=== PATIENT | male | born 1975 | race Caucasian/White ===

== ENCOUNTER 2017-09-18 15:58 | Emergency (ER) | payer OTHER ==
[2017-09-18 16:06] VITALS: RESP 16
[2017-09-18] MEDS ORDERED: ONDANSETRON 4 MG/2 ML VIAL ONE (16:19)
--- NOTE | 2017-09-18 16:26 | EDPHY ---
H & P Time Seen by Provider: 09/18/17 16:19 HPI/ROS: CHIEF COMPLAINT: Nausea, vomiting, diarrhea HISTORY OF PRESENT ILLNESS: This patient is a 42 y/o male complaining of nausea, vomiting and diarrhea. He recently travelled to [place] and his symptoms began on the last day of his trip there, 09/11/17. He initially had diarrhea only, which has resolved and returned several times since onset. In the last two days, he has had diarrhea and nausea. Today, he began vomiting and has vomited four times. He had not been able to keep down food or fluids. He continues to have watery diarrhea. He denies abdominal pain, but endorses some minor intermittent flank pain. He began taking Cipro last night. He has tried Loperamide, Pepto-Bismol, and Zofran ODT without relief of symptoms. He did have 2L IVF prior to arrival. His friend at bedside who travelled with him to [place] is feeling well and has had no similar symptoms. He denies fever, chest pain, shortness of breath, blood in his emesis or stool, urinary complaints, or other associated symptoms. REVIEW OF SYSTEMS: A 10 point review of systems was performed and is negative with the exception of the elements mentioned in the history of present illness. Past Medical/Surgical History: Denies. Social History: Nonsmoker. Friend at bedside. Lives in [place]. Smoking Status: Never smoked Physical Exam: General Appearance: Alert, pleasant, nontoxic-appearing Eyes: Pupils equal and round, no conjunctival pallor or injection ENT, Mouth: Mucous membranes dry Neck: Normal inspection Respiratory: Lungs are clear to auscultation Cardiovascular: Regular rate and rhythm Gastrointestinal: Epigastric tenderness. Abdomen is soft. Neurological: A&O, nonfocal exam Skin: Warm and dry, no rash Extremities: Normal inspection Psychiatric: Mood and affect normal Constitutional: Initial Vital Signs Temperature (C) 36.6 C 09/18/17 16:01 Heart Rate 66 09/18/17 16:01 Respiratory Rate 16 09/18/17 16:01 Blood Pressure 156/79 H 09/18/17 16:01 O2 Sat (%) 93 09/18/17 16:01 O2 Delivery Mode Room Air Allergies/Adverse Reactions: No Known Allergies Allergy (Unverified 09/18/17 16:06) Home Medications: Medication Instructions Recorded Ondansetron Odt [Zofran Odt 4 mg 4 mg PO Q4 PRN #10 tab 09/18/17 (*)] Medical Decision Making ED Course/Re-evaluation: 42 y/o male presents with one week history of diarrhea with nausea and vomiting onset today. Mild epigastric tenderness on exam. Plan for labs including CBC, chemistries, liver, lipase, and GI pathogen test if the patient can provide a stool sample. Plan to administer 4mg IV Zofran and 2L IVF for symptom relief. 17:30 Reassessed. Discussed lab results. Pt's nausea is resolved. Plan for PO trial. Tolerated oral fluids well. Stool sample sent, results pending on discharge. 2100: I called this patient after he left the emergency department. GI pathogen PCR is positive for rotavirus. Advised him to stop taking Cipro. Differential Diagnosis: Differential diagnosis includes though it is not limited to severe dehydration, appendicitis, diverticulitis, bowel perforation, small bowel obstruction. - Data Points Laboratory Results: Laboratory Results 09/18/17 16:30 09/18/17 16:30 09/18/17 09/18/17 16:30 16:30 WBC 5.76 10^3/uL 10^3/uL (3.80-9.50) RBC 5.28 10^6/uL 10^6/uL (4.40-6.38) Hgb 15.4 g/dL g/dL (13.7-17.5) Hct 45.2 % % (40.0-51.0) MCV 85.6 fL fL (81.5-99.8) MCH 29.2 pg pg (27.9-34.1) MCHC 34.1 g/dL g/dL (32.4-36.7) RDW 12.2 % % (11.5-15.2) Plt Count 227 10^3/uL 10^3/uL (150-400) MPV 10.3 fL fL (8.7-11.7) Neut % (Auto) 79.4 % H % (39.3-74.2) Lymph % (Auto) 12.3 % L % (15.0-45.0) Ness % (Auto) 7.1 % % (4.5-13.0) Eos % (Auto) 0.7 % % (0.6-7.6) Baso % (Auto) 0.2 % L % (0.3-1.7) Nucleat RBC Rel Count 0.0 % % (0.0-0.2) Absolute Neuts (auto) 4.57 10^3/uL 10^3/uL (1.70-6.50) Absolute Lymphs (auto) 0.71 10^3/uL L 10^3/uL (1.00-3.00) Absolute Monos (auto) 0.41 10^3/uL 10^3/uL (0.30-0.80) Absolute Eos (auto) 0.04 10^3/uL 10^3/uL (0.03-0.40) Absolute Basos (auto) 0.01 10^3/uL L 10^3/uL (0.02-0.10) Absolute Nucleated RBC 0.00 10^3/uL 10^3/uL (0-0.01) Immature Gran % 0.3 % % (0.0-1.1) Immature Gran # 0.02 10^3/uL 10^3/uL (0.00-0.10) Sodium 143 mEq/L mEq/L (135-145) Potassium 3.8 mEq/L mEq/L (3.5-5.2) Chloride 107 mEq/L mEq/L (97-110) Carbon Dioxide 19 mEq/l L mEq/l (22-31) Anion Gap 17 mEq/L H mEq/L (8-16) BUN 13 mg/dL mg/dL (7-23) Creatinine 1.2 mg/dL mg/dL (0.7-1.3) Estimated GFR > 60 Glucose 107 mg/dL H mg/dL (70-100) Calcium 9.3 mg/dL mg/dL (8.5-10.4) Total Bilirubin 0.5 mg/dL mg/dL (0.1-1.4) Conjugated Bilirubin 0.2 mg/dL mg/dL (0.0-0.5) Unconjugated Bilirubin 0.3 mg/dL mg/dL (0.0-1.1) AST 26 IU/L IU/L (17-59) ALT 35 IU/L IU/L (21-72) Alkaline Phosphatase 66 IU/L IU/L (38-126) Total Protein 7.8 g/dL g/dL (6.3-8.2) Albumin 4.9 g/dL g/dL (3.5-5.0) Lipase 289 IU/L IU/L (23-300) Microbiology Results: MICROBIOLOGY 09/18/17 17:30 Stool Gastrointestinal Tract Panel (PCR) - Final Rotavirus A Medications Given: Discontinued Medications Sodium Chloride (Ns) 1,000 mls @ 0 mls/hr IV ONCE ONE PRN Reason: Wide Open Stop: 09/18/17 16:29 Last Admin: 09/18/17 16:29 Dose: 1,000 mls Sodium Chloride (Ns) 1,000 mls @ 0 mls/hr IV ONCE ONE; Wide Open PRN Reason: Protocol Stop: 09/18/17 16:40 Last Admin: 09/18/17 17:01 Dose: 1,000 mls Ketorolac Tromethamine (Toradol) 15 mg IVP EDNOW ONE Stop: 09/18/17 17:45 Last Admin: 09/18/17 17:46 Dose: 15 mg Ondansetron HCl (Zofran) 4 mg IVP EDNOW ONE Stop: 09/18/17 16:29 Last Admin: 09/18/17 16:30 Dose: 4 mg Departure - Departure Disposition: Home, Routine, Self-Care Clinical Impression: Nausea vomiting and diarrhea Condition: Good Instructions: Acute Nausea and Vomiting (ED), Acute Diarrhea (ED) Additional Instructions: 1. Call tomorrow for your GI pathogen results. 2. Take Zofran as prescribed as needed for nausea. 3. Stay well-hydrated, try Pedialyte or similar clear electrolyte drinks. 4. Return to the emergency department for fever, abdominal pain, uncontrollable vomiting or diarrhea, or other worsening of condition. Referrals: Dong Arvizu DO [Doctor of Osteopathy] - As per Instructions Prescriptions: Ondansetron Odt [Zofran Odt 4 mg (*)] 4 mg PO Q4 PRN #10 tab PRN Reason: Nausea Report Scribed for: Marina Luciano Report Scribed by: Nia Campos Date of Report: 09/18/17 Time of Report: 16:34 Physician Review and Approval Statement: 09/18/17 16:34 Portions of this note were transcribed by a medical specialist. I personally performed a history, physical exam, medical decision making, and confirmed accuracy of information the transcribed note.
[2017-09-18] MEDS ORDERED: ONDANSETRON 4 MG/2 ML VIAL IVP ONE (16:28)
[2017-09-18] MEDS ORDERED: NS 1,000 ML IV ONE ×2 (16:28→16:39)
[2017-09-18 17:04] LABS: PLATELET COUNT 227 10^3/uL (150-400)
[2017-09-18 17:42] VITALS: BP 126/76; PULSE 51; TEMP 98.1; O2SAT 95
[2017-09-18] MEDS ORDERED: KETOROLAC 15 MG/1 ML SDV ONE (17:43)
[2017-09-18] MEDS ORDERED: KETOROLAC 15 MG/1 ML SDV IVP ONE (17:44)
== END 2017-09-18 18:02 | disposition home or self-care (01) ==
DX: R11.2 Nausea with vomiting, unspecified (principal); E86.9 Volume depletion, unspecified
CPT/HCPCS: 96374; J1885; J2405